=== PATIENT | female | born 1940 | race Caucasian/White ===

== ENCOUNTER 2025-03-31 10:30 | Emergency (ER) | payer MEDICARE ==
[~2025-03-31] VITALS: Ht 160 cm; Wt 63.0 kg
[2025-03-31] MEDS ORDERED: CEFDINIR300 MG PO (10:47)
[2025-03-31] MEDS ORDERED: APAP325 MG PO (10:47)
[2025-03-31] MEDS ORDERED: METFORMIN XR500 MG PO (10:48)
[2025-03-31] MEDS ORDERED: PANTOPRAZOLE SO40 MG PO (10:48)
[2025-03-31] MEDS ORDERED: SIMVASTATIN20 MG PO (10:48)
[2025-03-31 11:55] LABS: BASO # 0.1 10*3/uL (0.0-0.1); BASO % 0.6 % (0.0-1.0); EOS # 0.1 10*3/uL (0.0-0.4); EOS % 1.7 % (1.0-4.0); HEMATOCRIT 27.5 % (37.0-47.0); MEAN CELL VOLUME 101.1 fl (81.0-99.0); MEAN CORPUSCULAR HGB 31.6 pg (27.0-31.0); MEAN CORPUSCULAR HGB CONC 31.3 g/dl (33.0-37.0); MONO # 0.7 10*3/uL (0.1-1.0); MONO % 8.3 % (3.0-9.0); NEUT # 4.8 10*3/uL (2.3-7.9); NEUT % 60.9 % (47.0-73.0); NUCLEATED RED BLOOD CELL 0.3 % (0.0-0.0); PLATELET COUNT AUTOMATED 302 10*3/uL (130-400); RED BLOOD COUNT 2.72 10*6/uL (4.10-5.10); RED CELL DISTRI WIDTH 17.2 % (0-14.5); WHITE BLOOD COUNT 7.8 10*3/uL (4.8-10.8)
[2025-03-31 12:06] LABS: ACT PARTIAL THROMBO TIME 23.1 SECONDS (20.0-32.1)
[2025-03-31 12:18] LABS: ALKALINE PHOSPHATASE 42 U/L (46-116); BUN 20 mg/dl (9-23); CHLORIDE 106 mmol/L (98-107); POTASSIUM 4.1 mmol/L (3.4-5.1); SGPT/ALT 14 U/L (5-49); TOTAL PROTEIN 6.5 gm/dL (6.0-8.0)
[2025-03-31] MEDS ORDERED: FERREX 28 TABL1 EACH PO (13:29)
[2025-03-31] MEDS ORDERED: OMEPRAZOLE40 MG PO (13:29)
[2025-03-31] MEDS ORDERED: Carafate1 GM PO (13:30)
== END 2025-03-31 13:41 | disposition home or self-care (01) ==
LOC: ED 10:30
PROVIDERS: Emergency Medicine
DX: K92.2 Gastrointestinal hemorrhage, unspecified (principal); D64.9 Anemia, unspecified; E78.00 Pure hypercholesterolemia, unspecified; Z79.899 Other long term (current) drug therapy

== ENCOUNTER → 2025-05-18 | Outpatient (CLI) | payer MEDICARE ==
[~2025-05-18] MED LIST: APAP325 MG PO; CEFDINIR300 MG PO; Carafate1 GM PO; DOCUSATE SOD100 MG PO; FERREX 28 TABL1 EACH PO; METFORMIN XR500 MG PO; OMEPRAZOLE40 MG PO; PANTOPRAZOLE SO40 MG PO; PRAVASTATIN SOD40 MG PO; SIMVASTATIN20 MG PO
[2025-05-18 14:58] LABS: BASO # 0.1 10*3/uL (0.0-0.1); BASO % 0.8 % (0.0-1.0); EOS # 0.3 10*3/uL (0.0-0.4); EOS % 3.6 % (1.0-4.0); HEMATOCRIT 37.6 % (37.0-47.0); MEAN CELL VOLUME 97.2 fl (81.0-99.0); MEAN CORPUSCULAR HGB 28.9 pg (27.0-31.0); MEAN CORPUSCULAR HGB CONC 29.8 g/dl (33.0-37.0); MONO # 0.6 10*3/uL (0.1-1.0); MONO % 8.3 % (3.0-9.0); NEUT # 4.8 10*3/uL (2.3-7.9); NEUT % 63.7 % (47.0-73.0); PLATELET COUNT AUTOMATED 312 10*3/uL (130-400); RED BLOOD COUNT 3.87 10*6/uL (4.10-5.10); RED CELL DISTRI WIDTH 15.1 % (0-14.5); WHITE BLOOD COUNT 7.5 10*3/uL (4.8-10.8)
== END | disposition home or self-care (01) ==
LOC: RESCLI 01:30 → LAB 03:20
PROVIDERS: ATTEND Internal Medicine
DX: K92.2 Gastrointestinal hemorrhage, unspecified (principal)

== ENCOUNTER → 2025-06-22 | Outpatient (CLI) | payer MEDICARE | END | disposition home or self-care (01) | LOC: RESCLI 01:26 | PROVIDERS: ATTEND Internal Medicine | DX: D64.9 Anemia, unspecified (principal); K59.00 Constipation, unspecified; G47.00 Insomnia, unspecified; K92.2 Gastrointestinal hemorrhage, unspecified ==